=== PATIENT | female | born 1975 | race Two or more races ===

== ENCOUNTER 2019-04-17 16:50 | Emergency (ER) | payer OTHER ==
[~2019-04-17] VITALS: Ht 167.6 cm; Wt 70.3 kg
[2019-04-17] MEDS ORDERED: METROPOLOL (17:00)
[2019-04-17] MEDS ORDERED: COZAAR25 MG (17:00)
== END 2019-04-17 19:07 | disposition home or self-care (01) ==
LOC: ER 16:50
DX: G57.02 Lesion of sciatic nerve, left lower limb (principal)

== ENCOUNTER 2019-10-02 09:34 | Outpatient (CLI) | payer OTHER ==
[~2019-10-02 09:34] MED LIST changes: -FLONASE16 GM NASAL; -PEPCID AC20 MG PO; -PRILOSEC OTC20 MG PO
[2019-10-02] MEDS ORDERED: FLONASE16 GM NASAL ×2 (11:52)
[2019-10-02] MEDS ORDERED: PEPCID AC20 MG PO ×2 (11:52)
[2019-10-02] MEDS ORDERED: PRILOSEC OTC20 MG PO ×2 (11:52)
== END 2019-10-02 13:00 | disposition home or self-care (01) ==
LOC: OFIC 805 09:34
PROVIDERS: ATTEND Otolaryngology
DX: K14.6 Glossodynia (principal); R49.0 Dysphonia; K21.9 Gastro-esophageal reflux disease without esophagitis

== ENCOUNTER → 2019-10-02 | Outpatient (CLI) | payer OTHER ==
[~2019-10-02] MED LIST: COZAAR25 MG; FLONASE16 GM NASAL; METROPOLOL; PEPCID AC20 MG PO; PRILOSEC OTC20 MG PO
== END | disposition home or self-care (01) ==
LOC: SONOGRAMA 12:08
PROVIDERS: ATTEND Otolaryngology
DX: R22.1 Localized swelling, mass and lump, neck (principal)

== ENCOUNTER 2019-11-06 10:15 | Outpatient (CLI) | payer OTHER ==
[~2019-11-06] VITALS: Ht 167.6 cm; Wt 68.0 kg
[~2019-11-06 10:15] MED LIST changes: +FLONASE16 GM NASAL; +PEPCID AC20 MG PO; +PRILOSEC OTC20 MG PO
[2019-11-06] MEDS ORDERED: FLONASE16 GM NASAL (11:22)
[2019-11-06] MEDS ORDERED: PEPCID AC20 MG PO (11:23)
[2019-11-06] MEDS ORDERED: PRILOSEC OTC20 MG PO (11:23)
== END 2019-11-06 16:30 | disposition home or self-care (01) ==
LOC: OFIC 805 10:15
PROVIDERS: ATTEND Otolaryngology
DX: K14.6 Glossodynia (principal); R49.0 Dysphonia; K21.9 Gastro-esophageal reflux disease without esophagitis; R22.1 Localized swelling, mass and lump, neck; J30.89 Other allergic rhinitis

== ENCOUNTER → 2020-04-13 | Outpatient (CLI) | payer OTHER | END | disposition home or self-care (01) | LOC: OFIC 805 10:40 | PROVIDERS: ATTEND Otolaryngology | DX: J30.89 Other allergic rhinitis (principal); J04.0 Acute laryngitis; R22.1 Localized swelling, mass and lump, neck ==

== ENCOUNTER 2020-04-29 13:27 | Outpatient (CLI) | payer OTHER | END 2020-04-29 13:37 | disposition home or self-care (01) | LOC: SONOGRAMA 13:27 → MAMO-SONO 13:45 | PROVIDERS: ATTEND Otolaryngology | DX: E04.2 Nontoxic multinodular goiter (principal); R22.2 Localized swelling, mass and lump, trunk ==

== ENCOUNTER 2020-08-23 13:22 | Outpatient (CLI) | payer OTHER | END 2020-08-23 14:09 | disposition home or self-care (01) | LOC: OFIC 805 13:22 | PROVIDERS: ATTEND Otolaryngology Otology & Neurotology | DX: R22.1 Localized swelling, mass and lump, neck (principal); J04.0 Acute laryngitis; R49.0 Dysphonia ==

== ENCOUNTER 2021-03-29 07:07 | Outpatient (CLI) | payer OTHER | END 2021-03-29 07:11 | disposition home or self-care (01) | LOC: SONOGRAMA 07:07 | DX: R94.5 Abnormal results of liver function studies (principal); R10.30 Lower abdominal pain, unspecified ==

== ENCOUNTER 2021-06-14 10:53 | Outpatient (CLI) | payer OTHER | END 2021-06-14 11:08 | disposition home or self-care (01) | LOC: SONOGRAMA 10:53 | PROVIDERS: ATTEND Otolaryngology | DX: R22.1 Localized swelling, mass and lump, neck (principal) ==